=== PATIENT | female | born 1955 | race African-American/Black ===

== ENCOUNTER 2021-11-03 23:00 | Emergency (ER) | payer MEDICARE ==
[~2021-11-03] VITALS: Ht 172.7 cm; Wt 75.0 kg
[2021-11-04 00:15] VITALS: BP 155/77
== END 2021-11-04 01:24 | disposition left against medical advice (07) ==
LOC: EMS 23:00
DX: R60.0 Localized edema (principal); I10 Essential (primary) hypertension; Z98.890 Other specified postprocedural states
CPT/HCPCS: 99281; Z7502